=== PATIENT | female | born 1945 | race Caucasian/White ===

== ENCOUNTER → 2023-11-06 | Outpatient (CLI) | payer MEDICARE, OTHER ==
[~2023-11-06] MED LIST: AMI2 PO; AMLO5TAB88 MT; APIX5TAB MT; ASPI-1497 MT; B COMPLEX PO; BRIM5DRO BOTHEYE; CYAN-33 PO; DOCU-150 MT; DOCU250C19 MT; FURO-151 MT; FURO20TA4 MT; LEVO25TA7 MT; LEVO75TA7 MT; LOSA50TA41 MT; OLME40TA11 MT; ROSU20TA2 PO; SITA50TA3 PO; UBID10CA4 MT; [UNRECOGNIZED DRUG - OTHER] PO
== END | disposition home or self-care (01) ==
LOC: RAD 10:44
PROVIDERS: ATTEND Specialist
DX: I51.7 Cardiomegaly (principal); I50.9 Heart failure, unspecified
CPT/HCPCS: 71046